=== PATIENT | male | born 2000 | race African-American/Black ===

== ENCOUNTER → 2021-10-23 17:39 | Outpatient (CLI) | payer OTHER, SELFPAY ==
--- NOTE | 2021-10-23 17:43 | DI.MRI.S_ITS ---
PROCEDURE: MR KNEE RT WO CON INDICATIONS: Right Knee Pain TECHNIQUE: Noncontrast sagittal PD fast spin echo and T2 fast spin echo with fat saturation, sagittal 3-D FLASH with fat saturation; coronal T1 spin echo and PD fast spin echo with fat saturation, and axial PD fast spin echo with fat saturation through the knee. COMPARISON: None. FINDINGS: Image quality: Excellent. Menisci: There is a bucket-handle tear of the medial meniscus with a flipped fragment centrally. The lateral meniscus appears intact. Cruciate ligaments: The anterior cruciate ligament is markedly attenuated in signal with periligamentous edema consistent with a moderate to severe sprain proximally. There are intact appearing fibers present. The posterior cruciate ligament is intact. Medial structures: The medial collateral ligament appears intact. The semimembranosus tendon insertions and meniscocapsular junction appear intact. Visualized portions of the pes anserinus tendons appear intact without associated bursal fluid collections. Lateral structures: The lateral collateral ligament, long and short heads of the biceps femoris tendon appear intact. The popliteus tendon appears intact. Iliotibial band appears normal. Anterior structures: The quadriceps and patellar tendons appear intact. Patellar alignment is normal. No femoral trochlear dysplasia or ventral trochlear prominence. No edema in the infrapatellar fat pad. Bones and cartilage: There are bone contusions of the posterior lateral and medial tibial plateaus as well as the lateral femoral condyle anteriorly and posteriorly in the medial femoral condyle. No discrete fractures identified. The cartilage of the medial and lateral femorotibial compartments, as well as the patellofemoral compartment, appears preserved in thickness. Joint space: There is a moderate-sized joint effusion. No Tracy's cyst. Normal appearing synovial plicae are incidentally noted. IMPRESSION: 1. Bucket-handle tear of the medial meniscus with displacement of the flipped fragment centrally in the knee. 2. Moderate to severe sprain of the ACL proximally with intact appearing fibers present. 3. Bone contusions of the posterior tibial plateaus as well as the femoral condyles as described. No definite fractures. 4. Moderate-sized joint effusion. Dictated by: Dario Magallanes M.D. on 10/26/2021 at 10:35 Approved by: Dario Magallanes M.D. on 10/26/2021 at 10:48
== END ==
DX: S83.211A Bucket-handle tear of medial meniscus, current injury, right knee, initial encounter (principal); S83.511A Sprain of anterior cruciate ligament of right knee, initial encounter; S80.01XA Contusion of right knee, initial encounter; M25.461 Effusion, right knee; M25.561 Pain in right knee
CPT/HCPCS: 73721